=== PATIENT | male | born 1980 | race Caucasian/White ===

== ENCOUNTER 2017-05-19 18:54 | Emergency (ER) | payer MEDICAID ==
[~2017-05-19] VITALS: Ht 177.8 cm; Wt 79.4 kg
[2017-05-19] MEDS ORDERED: MEDROL DOSEPAK4 MG PO (20:55)
[2017-05-19] MEDS ORDERED: CYCLOBENZAPRINE10 MG PO (20:55)
[2017-05-19] MEDS ORDERED: NAPROSYN500 MG PO (20:55)
== END 2017-05-19 20:50 | disposition home or self-care (01) ==
LOC: ED 18:54
DX: M54.31 Sciatica, right side (principal); F17.200 Nicotine dependence, unspecified, uncomplicated; F10.10 Alcohol abuse, uncomplicated